=== PATIENT | male | born 1940 | race Hispanic/Latino ===

== ENCOUNTER → 2019-09-05 | Outpatient (CLI) | payer OTHER ==
[~2019-09-05] MED LIST: AEC81 PO; B12 VITAMIN PO; FERR-82 PO; HC1C1.5 TP; MUPI22OI2 TP; d3
== END | disposition home or self-care (01) ==
LOC: RAH 14:31
PROVIDERS: ATTEND Family Medicine
DX: R60.0 Localized edema (principal)
CPT/HCPCS: 93971

== ENCOUNTER 2022-03-22 06:40 | Observation (INO) | payer OTHER ==
[~2022-03-22] VITALS: Ht 172.7 cm; Wt 90.7 kg
[2022-03-22] MEDS ORDERED: MAG/ALUM/SIMETH 30 ML UDCUP PO ONE (07:00)
[2022-03-22] MEDS ORDERED: LIDOCAINE HCL 2% VISCOUS 15 ML UDCUP PO ONE (07:00)
[2022-03-22 07:10] LABS: BASOPHILS % (AUTO) 0.4 % (0.0-5.0); HEMATOCRIT 33.2 % (42-54); LYMPHOCYTES % (AUTO) 32.3 % (21.0-51.0); MEAN CORPUSCULAR HGB CONC 34.6 g/dL (32.0-36.0); MEAN CORPUSCULAR VOLUME 83.6 fL (79-99); MONOCYTES % (AUTO) 5.3 % (3.0-13.0); NEUTROPHILS % (AUTO) 59.8 % (40.0-77.0); PLATELET COUNT (AUTO) 239 K/uL (130-400); RED BLOOD CELL COUNT(AUTO) 3.97 MIL/uL (4.50-6.20); RED CELL DISTRIBUTION WIDTH 13.8 % (11.0-15.5)
[2022-03-22 07:20] LABS: INR 0.93 (0.85-1.15); PROTHROMBIN TIME 9.7 SEC (9.6-11.6)
[2022-03-22 07:22] LABS: PARTIAL THROMBOPLASTIN TIME 23.1 SEC (26.3-35.5)
[2022-03-22] MEDS ORDERED: NITROGLYCERIN 1GM OINT 1 INCH/1GM TD ONE (08:30)
[2022-03-22] MEDS ORDERED: ASPIRIN 81MG CHEW TAB PO ONE (08:30)
[2022-03-22 08:59] LABS: B-TYPE NATRIURETIC PEPTIDE 271 pg/mL (0-100)
[2022-03-22] MEDS: IPRATROPIUM/ALBUTEROL SULFATE 3 ML SOLUTION IH SCH ×4 (10:00→22:06)
[2022-03-22] MEDS ORDERED: LACTULOSE 20 GM/30 ML UDCUP PO PRN (10:00)
[2022-03-22] MEDS ORDERED: ONDANSETRON 4MG INJ IVP PRN (10:00)
[2022-03-22] MEDS ORDERED: LABETALOL 20MG SYG IV PRN (10:00)
[2022-03-22] MEDS ORDERED: HYDRALAZINE 20MG/ML VIAL IV PRN (10:00)
[2022-03-22] MEDS ORDERED: FUROSEMIDE 40MG VIAL IV ONE (10:00)
[2022-03-22] MEDS ORDERED: ACETAMINOPHEN 325 MG TAB PO PRN (10:00)
[2022-03-22 10:17] LABS: ALBUMIN 3.4 g/dL (3.5-5.0); CREATININE 1.3 mg/dL (0.5-1.5); TOTAL PROTEIN, SERUM 7.5 g/dL (6.0-8.3)
[2022-03-22 10:35] LABS: POTASSIUM 4.3 mmol/L (3.5-5.1)
[2022-03-22] MEDS: INSULIN HUMULIN R 100 UNIT/ML 3ML SQ SCH ×3 (11:30→21:00)
[2022-03-22 12:26] LABS: APPEARANCE,URINE CLEAR (CLEAR); BILIRUBIN,URINE NEGATIVE (NEGATIVE); COLOR,URINE YELLOW (YELLOW); GLUCOSE, URINE (UA) NEGATIVE (NEGATIVE); KETONES,URINE NEGATIVE (NEGATIVE); LEUKOCYTE ESTERASE ,URINE MODERATE Leu/uL (NEGATIVE); NITRATE,URINE NEGATIVE (NEGATIVE); OCCULT BLOOD,URINE NEGATIVE (NEGATIVE); PROTEIN,URINE NEGATIVE (NEGATIVE); UROBILINOGEN,URINE 0.2 mg/dL (0.2-1.0)
[2022-03-22 12:30] LABS: AMPHET/METH SCREEN,URINE NEGATIVE (NEGATIVE); BARBITURATE SCREEN, URINE NEGATIVE (NEGATIVE); BENZODIAZEPINES SCREEN,URINE NEGATIVE (NEGATIVE); CANNABINOID SCREEN,URINE NEGATIVE (NEGATIVE); COCAINE SCREEN,URINE NEGATIVE (NEGATIVE); PHENCYCLIDINE SCREEN,URINE NEGATIVE (NEGATIVE)
[2022-03-22 12:44] LABS: BACTERIA,URINE Few /HPF (None Seen); RBC,URINE 0-1 /HPF (0-1)
[2022-03-22 12:45] LABS: SQUAMOUS EPITHELIAL CELL,UR 0-2 /HPF (0-2)
[2022-03-22] MEDS ORDERED: IOHEXOL 350 MG/ML 100ML INFUS..BTL IV ONE (12:59)
[2022-03-22] MEDS: SODIUM CHLORIDE 3% FOR INHALATION 4 ML/AMP VIAL.NEB IH SCH ×2 (14:46→19:53)
[2022-03-22 20:26] VITALS: BP 135/56
[2022-03-22] MEDS: FAMOTIDINE 20MG TAB PO SCH (20:44)
[2022-03-22 23:40] VITALS: BP 123/48
[2022-03-23] MEDS: SODIUM CHLORIDE 3% FOR INHALATION 4 ML/AMP VIAL.NEB IH SCH ×5 (01:02→23:15)
[2022-03-23] MEDS: IPRATROPIUM/ALBUTEROL SULFATE 3 ML SOLUTION IH SCH ×2 (02:58→06:19)
[2022-03-23 03:43] LABS: BASOPHILS % (AUTO) 0.2 % (0.0-5.0); EOSINOPHILS % (AUTO) 0.6 % (0.0-8.0); HEMATOCRIT 25.5 % (42-54); LYMPHOCYTES % (AUTO) 17.7 % (21.0-51.0); MEAN CORPUSCULAR HEMOGLOBIN 28.8 pg (27.0-33.0); MEAN CORPUSCULAR HGB CONC 33.7 g/dL (32.0-36.0); MEAN CORPUSCULAR VOLUME 85.3 fL (79-99); MONOCYTES % (AUTO) 11.1 % (3.0-13.0); PLATELET COUNT (AUTO) 185 K/uL (130-400); RED BLOOD CELL COUNT(AUTO) 2.99 MIL/uL (4.50-6.20); RED CELL DISTRIBUTION WIDTH 14.1 % (11.0-15.5)
[2022-03-23 04:05] VITALS: BP 112/51
[2022-03-23 04:10] LABS: CREATININE 1.4 mg/dL (0.5-1.5); PHOSPHORUS 3.7 mg/dL (2.5-4.9); POTASSIUM 4.1 mmol/L (3.5-5.1); THYROID STIMULATING HORMONE 0.83 uIU/mL (0.36-3.74)
[2022-03-23 04:28] LABS: B-TYPE NATRIURETIC PEPTIDE 342 pg/mL (0-100)
[2022-03-23] MEDS: INSULIN HUMULIN R 100 UNIT/ML 3ML SQ SCH ×4 (06:10→19:57)
[2022-03-23 07:33] VITALS: BP 107/51
[2022-03-23] MEDS: POLYETHYLENE GLYCOL 3350 17 GM POWD.PACK PO SCH (11:09)
[2022-03-23] MEDS: FAMOTIDINE 20MG TAB PO SCH ×2 (11:10→20:29)
[2022-03-23] MEDS: ASPIRIN 81MG CHEW TAB PO SCH (11:11)
[2022-03-23 11:26] VITALS: BP 122/60
[2022-03-23] MEDS: REGADENOSON 0.4 MG/5 ML PF SYG IVP SCH ×2 (11:27→12:52)
[2022-03-23] MEDS ORDERED: IPRATROPIUM/ALBUTEROL SULFATE 3 ML SOLUTION IH SCH (12:00)
[2022-03-23] MEDS: FUROSEMIDE 20MG VIAL IV SCH (16:17)
[2022-03-23 16:29] VITALS: BP 123/70
[2022-03-23 19:00] VITALS: BP 107/58
[2022-03-23] MEDS: BUDESONIDE 0.5 MG/2 ML INH IH SCH (19:14)
[2022-03-23] MEDS: IPRATROPIUM 0.5 MG/2.5 ML INH IH SCH ×2 (19:14→23:15)
[2022-03-23] MEDS ORDERED: ATORVASTATIN 40 MG TABLET PO SCH (21:00)
[2022-03-23 22:57] VITALS: BP 137/63
[2022-03-24 03:08] VITALS: BP 101/60
[2022-03-24 03:12] VITALS: BP 138/66
[2022-03-24] MEDS: FUROSEMIDE 20MG VIAL IV SCH (03:24)
[2022-03-24 03:52] LABS: BASOPHILS % (AUTO) 0.3 % (0.0-5.0); EOSINOPHILS % (AUTO) 1.5 % (0.0-8.0); HEMATOCRIT 24.6 % (42-54); LYMPHOCYTES % (AUTO) 18.5 % (21.0-51.0); MEAN CORPUSCULAR HEMOGLOBIN 28.6 pg (27.0-33.0); MEAN CORPUSCULAR HGB CONC 33.7 g/dL (32.0-36.0); MEAN CORPUSCULAR VOLUME 84.8 fL (79-99); MONOCYTES % (AUTO) 11.2 % (3.0-13.0); NEUTROPHILS % (AUTO) 68.2 % (40.0-77.0); PLATELET COUNT (AUTO) 191 K/uL (130-400); WHITE BLOOD COUNT (AUTO) 7.9 K/uL (4.8-10.8)
[2022-03-24 04:07] LABS: ALBUMIN 2.7 g/dL (3.5-5.0); CREATININE 1.4 mg/dL (0.5-1.5); POTASSIUM 4.1 mmol/L (3.5-5.1); TOTAL PROTEIN, SERUM 6.5 g/dL (6.0-8.3)
[2022-03-24] MEDS: INSULIN HUMULIN R 100 UNIT/ML 3ML SQ SCH ×2 (05:47→11:30)
[2022-03-24 06:51] VITALS: BP 141/63
[2022-03-24] MEDS: BUDESONIDE 0.5 MG/2 ML INH IH SCH (07:06)
[2022-03-24] MEDS: SODIUM CHLORIDE 3% FOR INHALATION 4 ML/AMP VIAL.NEB IH SCH ×2 (07:06→11:12)
[2022-03-24] MEDS: IPRATROPIUM 0.5 MG/2.5 ML INH IH SCH ×2 (07:07→11:12)
[2022-03-24] MEDS ORDERED: LOSARTAN 25 MG TABLET PO SCH (09:00)
[2022-03-24] MEDS ORDERED: FUROSEMIDE 20 MG TABLET PO SCH (09:00)
[2022-03-24] MEDS: POLYETHYLENE GLYCOL 3350 17 GM POWD.PACK PO SCH (09:16)
[2022-03-24] MEDS: FAMOTIDINE 20MG TAB PO SCH (09:16)
[2022-03-24] MEDS: ASPIRIN 81MG CHEW TAB PO SCH (09:16)
[2022-03-24 12:06] VITALS: BP 125/76
== END 2022-03-24 16:15 | disposition home or self-care (01) ==
LOC: EDH 06:40 → EDHIP 09:51 → 2AH 15:37
PROVIDERS: ADMIT Internal Medicine Pulmonary Disease; ATTEND Internal Medicine Pulmonary Disease
DX: R07.89 Other chest pain (principal); Z20.822 Contact with and (suspected) exposure to COVID-19; I13.0 Hypertensive heart and chronic kidney disease with heart failure and stage 1 through stage 4 chronic kidney disease, or unspecified chronic kidney disease; I50.33 Acute on chronic diastolic (congestive) heart failure; N18.30 Chronic kidney disease, stage 3 unspecified; I73.9 Peripheral vascular disease, unspecified; I20.0 Unstable angina; J61 Pneumoconiosis due to asbestos and other mineral fibers; N39.0 Urinary tract infection, site not specified; D64.9 Anemia, unspecified; E66.9 Obesity, unspecified; F19.90 Other psychoactive substance use, unspecified, uncomplicated; Z77.090 Contact with and (suspected) exposure to asbestos; Z79.82 Long term (current) use of aspirin; Z68.30 Body mass index [BMI] 30.0-30.9, adult
CPT/HCPCS: 94640 ×13; 99285; 82550 ×5; 83735 ×2; 83874 ×5; 84484 ×6; 80053 ×2; 83880 ×2; 80305; 85025 ×3; 85378; 85610; 85730; 87088; 87804 ×2; 82948 ×8; 83605; 81001; 36415 ×3; 87635; 71045 ×2; 71275; 93017; 78452; 93306; 93970; 93005; 94664; 84145 ×2; 96374; 83036; 84443; 84100; 80048; 83690; 93925; 96376; 80061; G0378 ×48; C9803; Q9967; A9500 ×2; J1940 ×2; J2785